=== PATIENT | male | born 1965 | race Caucasian/White ===

== ENCOUNTER → 2017-08-03 | Outpatient (CLI) | payer MEDICAID ==
[~2017-08-03] MED LIST: AVINZA PO; DILAUDID8 MG PO; KETAMINE; KETAMINE TOP; LYRICA200 MG PO; NAPRELAN750 MG PO; NEXIUM40 MG PO; NORCO 5-325 TA1 EACH PO; ONDANSETRON HCL4 M2 PO; POTASSIUM20 PO; RAPAFLO8 MG PO; WELLBUTRIN PO; ZANAFLEX4 M1 PO; ZOCOR40 MG PO; [UNRECOGNIZED DRUG - OTHER] PO
== END ==
LOC: M.ULTRA 12:36
DX: M88.9 Osteitis deformans of unspecified bone (principal); M25.562 Pain in left knee; M79.662 Pain in left lower leg; M79.661 Pain in right lower leg; R23.9 Unspecified skin changes

== ENCOUNTER 2020-07-18 11:04 | Emergency (ER) | payer MEDICARE, MEDICAID ==
[~2020-07-18] VITALS: Ht 182.9 cm; Wt 69.4 kg
[2020-07-18] MEDS ORDERED: PERCOCET 10-321 EAC1 PO (11:29)
[2020-07-18] MEDS ORDERED: GABAPENTIN800 M1 PO (11:29)
[2020-07-18] MEDS ORDERED: PREGABALIN100 MG PO (11:30)
[2020-07-18] MEDS ORDERED: BACLOFEN 10MG T10 MG PO (11:30)
[2020-07-18] MEDS ORDERED: MORPHINE SULFAT10 M2 PO (11:30)
[2020-07-18] MEDS ORDERED: ASA81BEC PO (11:33)
[2020-07-18] MEDS ORDERED: FLOMAX0.4 MG PO (11:34)
[2020-07-18] MEDS ORDERED: BLOOD PRESSURE (11:35)
[2020-07-18 12:18] VITALS: BP 125/86
== END 2020-07-18 12:19 | disposition home or self-care (01) ==
LOC: M.ERS 11:04
DX: G89.29 Other chronic pain (principal); M54.5 Low back pain; K21.9 Gastro-esophageal reflux disease without esophagitis; E78.00 Pure hypercholesterolemia, unspecified; Z96.642 Presence of left artificial hip joint; Z88.1 Allergy status to other antibiotic agents; Z88.2 Allergy status to sulfonamides; M79.605 Pain in left leg